=== PATIENT | female | born 1950 | race Two or more races ===

== ENCOUNTER 2020-11-20 11:41 | Outpatient (CLI) | payer OTHER | END 2020-11-20 23:59 | disposition home or self-care (01) | LOC: LAB 11:41 | PROVIDERS: ATTEND Specialist | DX: Z01.818 Encounter for other preprocedural examination (principal); Z20.822 Contact with and (suspected) exposure to COVID-19 | CPT/HCPCS: C9803; U0003 ==

== ENCOUNTER 2020-11-25 05:52 | Day surgery (SDC) | payer OTHER ==
[2020-11-25] VITALS (7 sets, daily range): BP systolic 96–123; BP diastolic 46–72
--- NOTE | 2020-11-25 06:05 | NUR ---
RN NOTE PT CAME IN FOR R-KNEE SURGERY TODAY. A/O X4, ABLE TO VERBALIZE ALL NEEDS. PT AMBULATORY WITH STEADY GAIT. DENIES ANY PAIN OR DISCOMFORT AT THIS TIME. CHECKED BS 137. V/S STABLE. PREOP DONE, ALL CONSENTS SIGNED. IV STARTED ON R-AC #20G. PT VERBALIZED UNDERSTANDING OF PROCEDURE.
--- NOTE | 2020-11-25 08:01 | NUR ---
MS RN NOTES RECEIVED PT AWAKE IN BED. A/O X4. ABLE TO MAKE NEEDS KNOWN, DENIES PAIN OR ANY DISCOMFORTS AT THIS TIME. PT FOR SURGERY OF RIGHT KNEE TODAY BY DR GARZA, NPO MAINTAINED. ON ROOM AIR, BREATHING EVEN AND UNLABORED. IV ACCESS ON LAC G#20 INTACT AND PATENT. BED IN LOWEST LOCKED POSITION WITH S UP X2. CALL LIGHT W/IN REACH. WILL CONTINUE TO MONITOR.
[2020-11-25] MEDS ORDERED: FENTANYL PF 250MCG/5ML AMPUL ONE (08:32)
[2020-11-25] MEDS ORDERED: MIDAZOLAM HCL 2 MG/2ML VIAL ONE (08:32)
[2020-11-25] MEDS ORDERED: FAMOTIDINE/PF INJ 20 MG/2 ML VIAL IV ONE (08:33)
[2020-11-25] MEDS ORDERED: SCOPOLAMINE PATCH 1 MG/72HR TD ONE (08:34)
--- NOTE | 2020-11-25 08:42 | NUR ---
RN NOTES PATIENT PICKED-UP FOR SURGERY
[2020-11-25] MEDS ORDERED: LIDOCAINE 1% INJ 50 ML MDV IJ ONE (09:01)
[2020-11-25] MEDS ORDERED: methylPREDNISolone ACETATE 80 MG/ML VIAL ONE (09:02)
--- NOTE | 2020-11-25 10:51 | NUR ---
RN NOTES PT RETURNED TO UNIT AT 1015 ACCOMPANIED BY [employer] DRUMMOND S/P RIGHT KNEE ARTHROSCOPY, PARTIAL MEDIAL MENISCECTOMY BY MISTI BE. PT IS ALERT AND AWAKE BUT SLIGHT LETHARGIC. DRESSING ON ON RIGHT KNEE WRAPPED WITH DEEPTHI BANDAGE C/D/I. MD ORDERS RECEIVED AND CARRIED OUT. WILL CONTINUE TO MONITOR PT.
[2020-11-25] MEDS ORDERED: HYDROCODONE/APAP 5/325MG TABLET PO PRN ×2 (11:30)
--- NOTE | 2020-11-25 14:34 | NUR ---
RN DISCHARGED NOTES PATIENT STABLE FOR DISCHARGED. PT IS A/O X4. V/S STABLE AND RECORDED. PT PROVIDED WITH FWW PER HER REQUEST. IV ACCESS ON RAC REMOVED WITH NO ACTIVE BLEEDING NOTED. NAME ARMBAND REMOVED. HEALTH TEACHINGS AND DISCHARGED INSTRUCTIONS GIVEN TO PT AND VERBALIZED UNDERSTANDING. PT LEFT UNIT VIA WHEELCHAIR AT 1405 ACCOMPANIED BY ABDIEL LORD. PT'S SON JAIME AT THE LOBBY TO TAKE PT'S HOME
== END 2020-11-25 18:00 | disposition home or self-care (01) ==
LOC: DS 05:52 → UNDOADMIN 05:54 → MED 05:54 → UNDODISIN 14:10 → DS 18:00
PROVIDERS: ATTEND Specialist
DX: S83.231A Complex tear of medial meniscus, current injury, right knee, initial encounter (principal); F39 Unspecified mood [affective] disorder; I10 Essential (primary) hypertension; E11.9 Type 2 diabetes mellitus without complications; Y93.89 Activity, other specified; Y92.89 Other specified places as the place of occurrence of the external cause; Y99.8 Other external cause status
CPT/HCPCS: 29881; 82962; A4217; A6253; J0690; J1040; J2250; J2405; J2704; J2765; J3010; J3490 ×3; G0378